=== PATIENT | female | born 1990 | race Caucasian/White ===

== ENCOUNTER 2017-04-07 18:02 | Emergency (ER) | payer OTHER ==
[~2017-04-07] VITALS: Ht 160 cm; Wt 54.5 kg
[2017-04-07 18:16] VITALS: BP 126/59
[2017-04-07] MEDS ORDERED: HydrOXYzine HCL 25 MG TABLET PO ONE (19:00)
== END 2017-04-07 19:23 | disposition home or self-care (01) ==
LOC: EDBD 18:05 → EMS 18:05
DX: F43.9 Reaction to severe stress, unspecified (principal); R20.0 Anesthesia of skin; R20.2 Paresthesia of skin
CPT/HCPCS: 99281